=== PATIENT | male | born 1980 | race Caucasian/White ===

== ENCOUNTER 2020-05-16 03:38 | Emergency (ER) | payer BC ==
[2020-05-16] MEDS ORDERED: ACETAMINOPHEN 325 MG TABLET PO ONE (04:44)
[2020-05-16] MEDS ORDERED: HYDROCODONE/ACETAMINOPHEN 5-325 MG TABLET PO ONE (05:35)
[2020-05-16] MEDS ORDERED: PENICILLIN V POTASSIUM 500 MG TABLET PO ONE (05:40)
--- NOTE | 2020-05-16 05:40 | ER Document Report ---
HPI - HPI Patient complains to provider of: dental pain Time Seen by Provider: 05/16/20 05:27 Pain Level: 3 Context: 39-year-old male past medical history significant for GERD here visiting from [place] presents to the emergency room complaining of worsening right upper and right lower dental pain that started around midnight. Complains of widespread dental decay. No current dentist. Has been taking ibuprofen without relief. No new trauma or injury. Associated Symptoms: None Exacerbated by: Other - Chewing Relieved by: Denies Similar symptoms previously: Yes - Chronic dental pain Recently seen / treated by doctor: No - ROS Systems Reviewed and Negative: Yes All other systems reviewed and negative - CONSTITUTIONAL Constitutional: DENIES: Fever - EENT EENT: DENIES: Sore Throat, Ear Pain Notes: Dental pain - NEURO Neurology: DENIES: Headache - RESPIRATORY Respiratory: DENIES: Trouble Breathing, Coughing - DERM Skin Color: Normal Skin Problems: None Past Medical History - General Information source: Patient - Social History Smoking Status: Former Smoker Frequency of alcohol use: None Drug Abuse: None Family History: Reviewed & Not Pertinent Vertical Provider Document - CONSTITUTIONAL Agree With Documented VS: Yes Exam Limitations: No Limitations General Appearance: Mild Distress - INFECTION CONTROL TRAVEL OUTSIDE OF THE [place] IN LAST 30 DAYS: No - HEENT HEENT: Atraumatic, Normocephalic. negative: Pharyngeal Exudate, Pharyngeal Tenderness, Pharyngeal Erythema, Tympanic Membrane Red, Tympanic Membrane Bulging Notes: Widespread dental decay with multiple missing teeth. Right upper posterior gum with erythema swelling nonfluctuant abscesses palpated. Right lower posterior gum with erythema and swelling with a nonfluctuant abscess palpated. - NECK Neck: Normal Inspection, Supple. negative: Lymphadenopathy-Right - RESPIRATORY Respiratory: Breath Sounds Normal, No Respiratory Distress - CARDIOVASCULAR Cardiovascular: No Murmur, Bradycardia - MUSCULOSKELETAL/EXTREMETIES Musculoskeletal/Extremeties: FROM - NEURO Level of Consciousness: Awake, Alert, Appropriate - DERM Integumentary: Warm, Dry, No Rash Course - Re-evaluation Re-evalutation: 05/16/20 05:40 Patient was counseled on diagnosis. Take antibiotics as prescribed. Patient is here visiting but will be provided with dental clinic information. Will be given [address] [place] prior to discharge. Can continue with Tylenol and or Motrin as needed for pain. Patient was given strict return to the emergency room guidelines. Return for any new or worsening symptoms. All questions were answered. Patient verbalized understanding and agrees with plan of care. - Vital Signs Vital signs: Temp Pulse Resp BP Pulse Ox 98.0 F 52 L 20 182/95 H 99 05/16/20 03:45 05/16/20 03:47 05/16/20 03:45 05/16/20 03:45 05/16/20 03:45 Discharge - Discharge Clinical Impression: Chronic dental pain, Dental abscess Condition: Stable Disposition: HOME, SELF-CARE Instructions: Penicillin V K (ON LICENSE OF [facility]), Toothache (ON LICENSE OF [facility]), Dental Infection or Abscess (ON LICENSE OF [facility]) Additional Instructions: Patient was counseled on a soft diet. Antibiotics as prescribed. Tylenol and or Motrin as needed for pain. Counseled on the importance of following up with a dentist as soon as possible. Return to the emergency room for any new or worsening symptoms. Prescriptions: Penicillin V Potassium [Penicillin Vk 500 mg Tablet] 500 mg PO QID #40 tablet Referrals: [facility] [Provider Group] - Follow up as needed
[2020-05-16 05:54] VITALS: BP 157/79
== END 2020-05-16 05:53 | disposition home or self-care (01) ==
LOC: ER 03:38
DX: K04.7 Periapical abscess without sinus (principal); K02.9 Dental caries, unspecified; K08.89 Other specified disorders of teeth and supporting structures; G89.29 Other chronic pain; Z87.891 Personal history of nicotine dependence
CPT/HCPCS: 99284